=== PATIENT | female | born 1970 | race African-American/Black ===

== ENCOUNTER 2017-11-14 16:20 | Emergency (ER) | payer BC, SELFPAY ==
[2017-11-14 16:22] VITALS: BP 161/95; PULSE 92; RESP 18; TEMP 36.8; O2SAT 98; BMI 36.3
--- NOTE | 2017-11-14 16:34 | CT_ITS ---
STUDY: CT BRAIN WITHOUT CONTRAST REASON FOR EXAM: Female, 47 years old. Left arm numbness RADIATION DOSAGE (If Supplied By Facility): CTDIvol = ( 44.99 ) mGy, DLP = ( 745.49 ) mGycm TECHNIQUE: Transaxial CT imaging of the brain was performed without administration of intravenous contrast material. Individualized dose optimization techniques were used for this CT. COMPARISON: None. FINDINGS: There is no acute bleed or infarct. There are normal white matter tracts. The ventricles are normal in configuration. There is no hydrocephalus. The visualized paranasal sinuses are clear. The mastoid air cells are well aerated. There is no skull fracture. CT/Brain/Head without Contrast IMPRESSION: No acute intracranial abnormality. Electronically Signed: Sea Bustamante, at 17:24 EDT Tel , Service support ,
--- NOTE | 2017-11-14 16:38 | ED.VISSUMM ---
- ER Visit Summary Date of Service: 11/14/17 Chief Complaint: Palpitations History of Present Illness: The patient is a 47 F states she is walking around [facility] and noticed tingling in her left arm. She noticed that her heart was beating irregularly as well. She denies any chest pain. She states her Fitbit noted her heart rate was between 90 and 105 at the time. She denies shortness of breath. She denies weakness in her arm. She denies any recent change in medications. She denies caffeine intake. Physical Examination: Blood pressure is 161/95, otherwise normal. Head neck examination unremarkable. She does have reproducible tenderness in the left lower cervical paraspinal muscles. Heart is regular rate and rhythm. Lung sounds are clear. Abdomen is soft nontender. Neuro exam reveals decreased sensation to light touch in the left upper extremity. She has normal strength on testing. Strong distal pulses are noted throughout. Test Results: EKG is sinus at 80 with no sign of acute ischemia. Two-view chest x-ray is normal. CT head normal. CBC and chemistry studies normal. TSH and troponin are normal. Emergency Department Course and Treatment: On repeat evaluation patient is resting comfortably. She is playing a game on her phone. Heart rate is 81. She has had no arrhythmias while here. At this point paresthesias in her arm are improved she states now involves only her fingertips. My suspicion is that she has cervical paraspinal spasm causing radicular symptoms. She has no muscle weakness. She is to monitor her symptoms over the weekend and return if symptoms worsen. She is to follow with her PCP next week. Treatment Plan: [] Disposition: Discharge Impression: 1. Palpitations, improved 2. Left arm numbness, improved 3. Cervical paraspinal spasm This note was generated with S[employer] dictation software. It may contain incorrect words, spelling, and punctuation that were not noted in review of the chart prior to signing ED Disposition - Plan for ED Patient: Chief Complaint: Palpitations Referrals: Roderick Kearney DO [Primary Care Provider] -
[2017-11-14] MEDS: 0.9% Normal Saline 1,000 ML 150 ML IV (16:50)
[2017-11-14 16:51] VITALS: BP 127/95; PULSE 78; RESP 16; O2SAT 96
--- NOTE | 2017-11-14 17:05 | RAD_ITS ---
STUDY: X-RAY CHEST REASON FOR EXAM: Female, 47 years old. Palpitation TECHNIQUE: Frontal and lateral views of the chest COMPARISON: None. FINDINGS: The lungs are clear. There are no pleural effusions. There is no pneumothorax. The heart is normal in size. The visualized osseous structures are within normal limits. RAD/Chest PA and Lateral IMPRESSION: No acute thoracic pathology. Electronically Signed: Sea Bustamante, at 17:35 EDT Tel , Service support ,
[2017-11-14 17:10] LABS: Absolute Lymphocyte Count 3.14 X10^3/ul (0.83-4.51); Absolute Neutrophil Count 6.1 X10^3/uL (2.0-7.7); Basophil# 0.03 X10^3/uL; Basophil% 0.3 % (0-1); Eosinophil# 0.24 X10^3/uL; Eosinophils% 2.4 % (0-5); Hematocrit 39.5 % (37-47); Hemoglobin 13.1 g/dl (12.0-15.0); Lymphocyte # 3.14 X10^3/ul (4.0); Lymphocyte % 31.2 % (19-41); Mean Corp Hgb Conc 33.2 g/gl (32-36); Mean Corpuscular Hgb 28.9 pg (27.0-32.0); Mean Platelet Vol. 10.2 fl (6.2-12.0); Monocyte# 0.55 X10^3/uL; Monocyte% 5.5 % (0-10); Neutrophil # 6.08 X10^3/uL (2.7-7.7); Neutrophil % 60.5 % (47-70); POSITIVE COUNT NO; POSITIVE DIFFERENTIAL NO; POSITIVE MORPHOLOGY NO; Platelet Count 248 K/mm3 (150-450); RBC Distribution Width CV 13.1 % (11.6-14.6); Red Blood Count 4.54 M/mm3 (4.2-5.4); White Blood Count 10.1 K/mm3 (4.4-11.0)
[2017-11-14 17:30] LABS: Anion Gap 5 (5-15); BUN 17 mg/dL (7-18); BUN/Creat Ratio 18.7 RATIO (10-20); Calcium,Total 9.2 mg/dL (8.5-10.1); Chloride 105 mmol/L (98-107); Creatinine, Serum 0.91 mg/dL (0.55-1.02); EST Glomerular Filtration Rate 71 mL/min (>60); Est Glom Filt Rate - Afr Amer 85 mL/min (>60); Glucose 104 mg/dL (74-106); Potassium 3.9 mmol/L (3.5-5.1); Sodium Level 141 mmol/L (136-145); Thyroid Stim Hormone (TSH) 1.82 uIU/mL (0.358-3.74)
--- NOTE | 2017-11-14 17:54 | ED.DEP ---
ED Disposition - Plan for ED Patient: Disposition: Home or Assisted Living Chief Complaint: Palpitations Instructions: ED Palpitations Referrals: Roderick Kearney DO [Primary Care Provider] - 1 Week
[2017-11-14 18:02] VITALS: BP 109/90; PULSE 79; RESP 16; O2SAT 96
== END 2017-11-14 18:08 | disposition home or self-care (01) ==
PROVIDERS: Emergency Provider Emergency Medicine; Family Provider Student in an Organized Health Care Education/Training Program; PCP Student in an Organized Health Care Education/Training Program
DX: R00.2 Palpitations (principal); R20.0 Anesthesia of skin; M62.838 Other muscle spasm; R20.2 Paresthesia of skin; J45.909 Unspecified asthma, uncomplicated; M54.9 Dorsalgia, unspecified; K21.9 Gastro-esophageal reflux disease without esophagitis; Z79.899 Other long term (current) drug therapy; Z86.2 Personal history of diseases of the blood and blood-forming organs and certain disorders involving the immune mechanism; Z87.891 Personal history of nicotine dependence
CPT/HCPCS: 70450; 71046; 80048; 84443; 84484; 85025; 93005; 96360; 99284; J7030; A4216

== ENCOUNTER → 2020-09-06 11:37 | Outpatient (CLI) | payer BC, SELFPAY | PROVIDERS: PCP Student in an Organized Health Care Education/Training Program; Referring Provider Surgery; Visit Provider Surgery | DX: Z20.828 Contact with and (suspected) exposure to other viral communicable diseases (principal) | CPT/HCPCS: 87426; C9803 ==

== ENCOUNTER 2022-12-29 15:32 | Emergency (ER) | payer BC, SELFPAY ==
[2022-12-29 15:34] VITALS: BP 157/103; PULSE 111; RESP 18; TEMP 36.6; O2SAT 94; BMI 39.6
--- NOTE | 2022-12-29 16:57 | EDS_ITS ---
HPI <MARLENA Drake - Last Filed: 12/29/22 17:17> History of Present Illness Chief Complaint: Eye Problem Narrative Narrative: Patient a 53-year-old female with history of bilateral eye redness. Patient has been ongoing for 8 days. Started in the left eye rating to the right eye. Patient denies any significant drainage. Patient did see a urgent care, placed on ofloxacin drops as well as amoxicillin concerning for orbital cellulitis. Patient states that the medications are not helping, she continues to have burning and she is here for evaluation. [facility] <MARLENA Drake - Last Filed: 12/29/22 17:17> [facility] Medical History (Updated 12/29/22 @ 17:[address] Mann Simon MD) Alcohol use Anxiety Arthritis Asthma Back pain Contact with and (suspected) exposure to other viral communicable diseases Depression Diabetes Emphysema, unspecified Former smoker Gastric reflux High cholesterol Low iron Marijuana use Shortness of breath on exertion URI (upper respiratory infection) Wears dentures Wears glasses Home Medications albuterol sulfate 90 mcg/actuation aerosol inhaler (Ventolin HFA) 1 - 2 puff inhalation Q4H PRN PRN Shortness Of Breath 01/25/13 [History Last Taken Unknown] ferrous sulfate 325 mg (65 mg iron) tablet 325 mg PO BIDCM 07/28/13 [History Last Taken 03/15/16 08:00] omeprazole 20 mg capsule,delayed release 40 mg PO DAILY 07/28/13 [History Last Taken 03/15/16 08:00] Wellbutrin 150 mg PO BID 03/16/16 [History Last Taken Unknown] atorvastatin 10 mg tablet 10 mg PO QHS 03/16/16 [History Last Taken 03/14/16 00:00] cholecalciferol (vitamin D3) 25 mcg (1,000 unit) tablet (Vitamin D3) 2,000 unit PO DAILY 03/16/16 [History Last Taken Unknown] trazodone 50 mg tablet 50 - 100 mg PO QHS 03/16/16 [History Last Taken Unknown] dexamethasone 4 mg tablet (Decadron) 4 mg PO DAILY #5 tabs 04/04/21 [Rx Last Taken Unknown] naphazoline 0.025 %-pheniramine 0.3 % eye drops (Naphcon-A) 2 drp EACH EYE DAILY #10 mL 12/29/22 [Rx Last Taken Unknown] Allergy/AdvReac Type Severity Reaction Status Date / Time erythromycin base Allergy Rash Verified 12/29/22 15:34 [Erythromycin Base] Sulfa (Sulfonamide Allergy Unknown Verified 12/29/22 15:34 Antibiotics) venom-honey bee Allergy Swelling Verified 12/29/22 15:34 [bee venom (honey bee)] Surgical History History of Hx laparoscopic cholecystectomy Hx of hysterectomy Social History Smoking Status: Light Smoker (<10/day) ROS <MARLENA Drake - Last Filed: 12/29/22 17:17> ROS ED ROS Narrative Constitutional: Negative for fever, chills, weight loss, weakness Eyes: Negative for vision loss, vision change, double vision. Positive blurred vision, redness, pain and swelling ENT: Negative for any sore throat, ear pain, congestion Cardiovascular: Negative for any chest pain, tightness, palpitations Respiratory: Negative for any cough, sputum production, hemoptysis, dyspnea, dyspnea on exertion, orthopnea Gastrointestinal: Negative for any abdominal pain, nausea, vomiting, diarrhea, constipation, blood in stool, blood in vomit : Negative for any urinary frequency, dysuria, retention, blood in urine Muscle skeletal: Negative for any muscle joint pain, stiffness, myalgias, arthralgias, neck pain, back pain Neurological: Negative for any headache, syncope, numbness or tingling, dizziness Skin: Negative for any rashes, lumps, itching, abrasions, lacerations Psychiatric: Negative for any depression, anxiety, stress, suicidal ideation, homicidal ideation Hematologic: Negative for any easy bruising, excessive bruising, easy bleeding Allergies: Negative for any eczema, hives, rash EXAM <MARLENA Drake - Last Filed: 12/29/22 17:17> Physical Exam Narrative Exam Narrative: Vital signs reviewed. HEET: Head normocephalic atraumatic, TMs clear bilaterally. Posterior pharynx is clear, moist mucous membranes. Nares clear bilaterally. Pupils are equal round reactive light. Patient bilateral conjunctiva is injected, red. Patient's EOMs are intact, patient has minimal pain on EOM movement. Surrounding skin appears unremarkable. There is no significant evidence of deep tissue infection. Neck: Supple with no lymphadenopathy or tenderness. No signs of meningismus, negative jolt sign. Cardiac: Regular rate and rhythm no murmurs gallops or rubs, equal peripheral pulses bilaterally. Respiratory: Lungs clear to auscultation bilaterally. No chest tenderness. Abdomen: Soft, nontender, nondistended. No abdominal bruit or pulsatile masses. No hepatosplenomegaly Extremities: No peripheral edema, no signs of gross trauma or deformity. Active full range of motion of all extremities. Neuro: Cranial nerves II through XII intact, no focal neurological deficits. Skin: Clean dry and intact with no rash, purpura, petechiae, vesicles or pustules. Backs/flank: No CVA tenderness, no midline spinal tenderness, no deformity. Psych: Normal mood and affect. No SI, HI or acute psychosis. Const Vital Signs: 12/29/22 15:34 Temperature 97.8 F Temperature Source Temporal Pulse Rate 111 H Respiratory Rate 18 Blood Pressure 157/103 H Blood Pressure Mean 121 Pulse Ox 94 Oxygen Delivery Method Room Air MDM <MARLENA Drake - Last Filed: 12/29/22 17:17> [facility] Treatment and Re-Evaluation Narrative: Patient appears generally well, patient appears nontoxic. Patient presents to the emergency department with complaints of bilateral eye redness. Physical examination, is no foreign body, there is no corneal abrasion. This is both eyes, no concern for any acute angle glaucoma. Patient's examination consistent with seasonal allergic conjunctivitis. She will be placed on Naphcon-A. She will stop her antibiotic drops probably she will follow-up with [facility] eye clinic. Patient struck to return for any worsening symptoms, vital signs are stable. Patient stable for discharge <Dr. Mann Simon MD - Last Filed: 12/29/22 17:06> [facility] MDM Narrative Medical decision making narrative: I have personally performed a face to face assessment of the patient and have reviewed the MUKESH Note. I performed a substantive portion of the visit including all aspects of the following. My juarez findings include: History is 2-year-old female 8-day history of initially left eye discomfort water watering now right also. Started herself on some antibiotics she had before that she is for conjunctivitis really was not improving she was traveling was in [place] went to an urgent care they told her she may have periorbital cellulitis and prescribed an oral antibiotic and given antibiotic drops. She says not getting better nons in the right eye. She denies any crusting. No pus. She does not wear contacts. Wear glasses. Exam is [appearing 52-year-old female. Vital signs stable afebrile. She does not look septic toxic or in distress. HEENT exam shows bilateral conjunctivitis with watering of both eyes. No pus or discharge. No significant swelling. No orbital or periorbital cellulitis. No preauricular lymphadenopathy. Clear. Heart regular rhythm. Abdomen soft.] Medical Decision Making [slightly examination of the eyes with fluorescein stain showed no foreign body. No corneal abrasion or ulceration. Exam is consistent with AN environmental conjunctivitis or allergic conjunctivitis. She will stop all current antibiotics and eyedrops. She was placed on Naphcon-A. She will be instructed to follow-up with an boss miner locally.] Other additions or changes: [None] Discharge Plan Triage Chief Complaint: Eye Problem ED Midlevel Provider: Josh Harding ED Provider: Mann Simon Dx/Rx/DC Orders Clinical Impression: Acute allergic conjunctivitis Instructions: ED Conjunctivitis, Allergic Prescriptions: New Naphcon-A 0.025-0.3 % drops 2 drp EACH EYE DAILY Qty: 10 0RF No Action dexamethasone [Decadron] 4 mg tablet 4 mg PO DAILY Qty: 5 0RF albuterol sulfate [Ventolin HFA] 1 INHALER inhaler 1 - 2 puff inhalation Q4H PRN PRN (Reason: Shortness Of Breath) ferrous sulfate 325 MG tablet 325 mg PO BIDCM omeprazole 20 MG capsule,delayed release(DR/EC) 40 mg PO DAILY Patient Comments: trazodone 50 MG tablet 50 - 100 mg PO QHS atorvastatin 10 MG tablet 10 mg PO QHS cholecalciferol (vitamin D3) [Vitamin D3] 1,000 UNIT tablet 2,000 unit PO DAILY Wellbutrin 150 mg PO BID Primary Care Provider: Roderick Kearney Referrals: Roderick Kearney DO [Primary Care Provider] - Kush Hayward MD [Med Staff - Active Staff] - Activity Restrictions/Additional Instructions: Stop the antibiotics, both oral and eyedrops. Use the eyedrops I prescribed you. Follow-up with ophthalmology. Disposition Disposition: Home, Self Care
[2022-12-29 16:58] VITALS: PULSE 71; RESP 18; O2SAT 98
== END 2022-12-29 17:13 | disposition home or self-care (01) ==
PROVIDERS: Emergency Provider Emergency Medicine; PCP Student in an Organized Health Care Education/Training Program; Visit Provider Emergency Medicine
DX: H10.13 Acute atopic conjunctivitis, bilateral (principal); J43.9 Emphysema, unspecified; E11.9 Type 2 diabetes mellitus without complications; E78.00 Pure hypercholesterolemia, unspecified
CPT/HCPCS: 99283

== ENCOUNTER → 2024-03-15 | Outpatient (CLI) | payer BC, SELFPAY | END | disposition home or self-care (01) | LOC: SL 08:23 | PROVIDERS: PCP Student in an Organized Health Care Education/Training Program; Visit Provider Student in an Organized Health Care Education/Training Program | DX: R69 Illness, unspecified (principal) ==